=== PATIENT | female | born 1975 | race Two or more races ===

== ENCOUNTER 2018-09-03 08:47 | Day surgery (SDC) | payer OTHER ==
[2018-09-03] MEDS ORDERED: CODE1TAB37 PO (13:08)
[2018-09-03] MEDS ORDERED: DOXYCYCLINE HY100 MG PO (13:10)
== END 2018-09-03 15:45 | disposition home or self-care (01) ==
LOC: CIR.AMB 08:47 → EDBD 11:30 → CIR.AMB 12:45
DX: N84.0 Polyp of corpus uteri (principal); D25.0 Submucous leiomyoma of uterus

== ENCOUNTER 2020-12-21 08:26 | Outpatient (CLI) | payer OTHER ==
[~2020-12-21 08:26] MED LIST: CODE1TAB37 PO; DOXYCYCLINE HY100 MG PO
== END 2020-12-21 08:32 | disposition home or self-care (01) ==
LOC: SONOGRAMA 08:26
PROVIDERS: ATTEND Pathology Anatomic Pathology & Clinical Pathology
DX: E04.1 Nontoxic single thyroid nodule (principal)